=== PATIENT | female | born 1975 | race American Indian/Alaskan Native ===

== ENCOUNTER 2018-12-24 22:49 | Emergency (ER) | payer OTHER ==
[2018-12-25] MEDS ORDERED: CLEOCIN 900 MG/50 mL 900 MG/50 ML BAG IV ONE (03:32)
[2018-12-25] MEDS ORDERED: TORADOL IV ONE (03:32)
[2018-12-25] MEDS ORDERED: NACL 0.9% 1000 ML 1,000 ML IV ONE (03:32)
--- NOTE | 2018-12-25 04:20 | Emergency Department Report ---
ED ENT HPI - General Chief complaint: Headache Stated complaint: FACE SWELLING LEFT SIDE HEADACHE Time Seen by Provider: 12/25/18 03:28 Source: patient Mode of arrival: Ambulatory Limitations: No Limitations - History of Present Illness Initial comments: Patient is a 43-year-old -Thai female who presents for recurrent dental abscess #15 with facial and gum swelling patient states some mild ear pain there is no tinnitus is no sore throat no fever or chills patient is tolerating by mouth intake There is no neck swelling no neck masses there are no visual changes no eye drainage no blurred vision MD complaint: tooth pain Onset/Timin -: week(s), unknown (recurring chronic dental carries with abscess ) Location: tooth # (15) Severity: moderate Severity scale (0 -10): 5 Quality: aching Consistency: constant Improves with: none Worsens with: eating Context- Dental: history of dental caries, poor dental care Associated Symptoms: gum swelling, toothache - Related Data Previous Rx's Medication Instructions Recorded Last Taken Type Clindamycin [Clindamycin CAP] 300 mg PO Q6H 10 Days #40 capsule 12/25/18 Unknown Rx Ibuprofen 800 mg PO TID PRN #30 tablet 12/25/18 Unknown Rx Allergies Allergy/AdvReac Type Severity Reaction Status Date / Time droperidol [From Inapsine] Allergy Dizziness Verified 12/24/18 23:08 prochlorperazine Allergy Swelling Verified 12/24/18 23:08 [From Compazine] ED Dental HPI - General Chief complaint: Headache Stated complaint: FACE SWELLING LEFT SIDE HEADACHE Time Seen by Provider: 12/25/18 03:28 Source: patient Mode of arrival: Ambulatory Limitations: No Limitations - Related Data Previous Rx's Medication Instructions Recorded Last Taken Type Clindamycin [Clindamycin CAP] 300 mg PO Q6H 10 Days #40 capsule 12/25/18 Unknown Rx Ibuprofen 800 mg PO TID PRN #30 tablet 12/25/18 Unknown Rx Allergies Allergy/AdvReac Type Severity Reaction Status Date / Time droperidol [From Inapsine] Allergy Dizziness Verified 12/24/18 23:08 prochlorperazine Allergy Swelling Verified 12/24/18 23:08 [From Compazine] ED Review of Systems ROS: Stated complaint: FACE SWELLING LEFT SIDE HEADACHE Other details as noted in HPI Constitutional: denies: chills, fever Eyes: denies: eye pain, eye discharge, vision change ENT: dental pain. denies: ear pain, throat pain Respiratory: denies: cough, shortness of breath, wheezing Cardiovascular: denies: chest pain, palpitations Endocrine: no symptoms reported Gastrointestinal: denies: abdominal pain, nausea, diarrhea Genitourinary: denies: urgency, dysuria, discharge Musculoskeletal: denies: back pain, joint swelling, arthralgia Skin: denies: rash, lesions Neurological: as per HPI, headache. denies: abnormal gait, vertigo Psychiatric: denies: anxiety, depression Hematological/Lymphatic: denies: easy bleeding, easy bruising ED Past Medical Hx - Past Medical History Previous Medical History?: Yes Hx Sickle Cell Disease: Yes Hx Headaches / Migraines: Yes Additional medical history: Cervical DJD, - Surgical History Past Surgical History?: Yes Additional Surgical History: , Left breast, - Social History Smoking Status: Never Smoker Substance Use Type: Marijuana - Medications Home Medications: Home Medications Medication Instructions Recorded Confirmed Last Taken Type Clindamycin [Clindamycin CAP] 300 mg PO Q6H 10 Days #40 capsule 12/25/18 Unknown Rx Ibuprofen 800 mg PO TID PRN #30 tablet 12/25/18 Unknown Rx ED Physical Exam - General Limitations: No Limitations General appearance: alert, in no apparent distress - Head Head exam: Present: normocephalic - Expanded Head Exam Expanded Head exam: Present: other (left check and inferior periorbital swelling no erthema mild pain to cheek palpation). Absent: laceration, abrasion, contusion, hematoma, racoon eyes, mueller's sign, general tenderness, tenderness of temporal artery - Eye Eye exam: Present: normal appearance, PERRL, EOMI, periorbital swelling. Absent: conjunctival injection, periorbital tenderness Pupils: Present: normal accommodation. Absent: miosis - Expanded Eye Exam Expanded Eyelids: Normal Inspection: Right, Swelling: Left (left cheek and inferior periorbital swelling ) Pupils: Regular, Round: Bilateral, Reactive: Bilateral Sclera/Conjunctival: Normal Inspection: Bilateral Anterior chamber: Normal Inspection: Bilateral Posterior chamber: Deferred: Bilateral Visual acuity (R) = 20/: 40 Visual acuity (L) = 20/: 40 With correction: No - ENT ENT exam: Present: mucous membranes moist, TM's normal bilaterally, normal external ear exam - Expanded ENT Exam Expanded Ear exam: Present: normal external inspection Mouth exam: Absent: trismus Teeth exam: Present: dental caries, dental tenderness # (15 erythem swelling facial swelling no focal absces ) Throat exam: Positive: tonsillar erythema, other (uvula midline no swelling no stridor no peritonsilar abscess). Negative: tonsillomegaly, tonsillar exudate, R peritonsillar mass, L peritonsillar mass - Neck Neck exam: Present: normal inspection, full ROM, lymphadenopathy. Absent: tenderness, meningismus, thyromegaly - Expanded Neck Exam Expanded Neck exam: Absent: tenderness, midline deformity, anterior neck swelling, thyroid mass, carotid bruit, tracheal deviation - Respiratory Respiratory exam: Present: normal lung sounds bilaterally. Absent: respiratory distress, wheezes, rales, stridor, chest wall tenderness - Cardiovascular Cardiovascular Exam: Present: regular rate, normal rhythm, normal heart sounds. Absent: systolic murmur, diastolic murmur, rubs, gallop - GI/Abdominal GI/Abdominal exam: Present: soft, normal bowel sounds. Absent: tenderness, bruit, hernia - Rectal Rectal exam: Present: deferred - Extremities Exam Extremities exam: Present: normal inspection, full ROM - Back Exam Back exam: Present: normal inspection, full ROM. Absent: tenderness, rash noted - Neurological Exam Neurological exam: Present: alert, oriented X3, CN II-XII intact, normal gait - Psychiatric Psychiatric exam: Present: normal affect, normal mood - Skin Skin exam: Present: warm, dry, intact, normal color. Absent: rash ED Course Vital Signs 12/24/18 12/25/18 23:00 06:14 Temperature 97.9 F 98.3 F Pulse Rate 73 76 Respiratory 16 19 Rate Blood Pressure 102/75 Blood Pressure 118/68 [Left] O2 Sat by Pulse 99 99 Oximetry ED Medical Decision Making - Lab Data Result diagrams: 12/25/18 03:59 12/25/18 03:59 - Radiology Data Radiology results: report reviewed, image reviewed Findings [facility] [address] [place] [address] Cat Scan Report Signed Patient: HEENA NUNEZ MR#: [id number] : 1975 Acct:[id number] Age/Sex: 43 / F ADM Date: 12/24/18 Loc: ED Attending Dr: Ordering Physician: JOEY CHUN NP Date of Service: 12/25/18 Procedure(s): CT facial bones w con Accession Number(s): [id number] cc: JOEY CHUN NP PROCEDURE: CT FACIAL BONES W CON TECHNIQUE: Computerized tomography of the facial bones and soft tissues with axial and coronal sections was performed from the cranial aspect of the frontal sinuses to the caudal portion of the mandible following the IV injection of iodinated nonionic contrast. Automated exposure control, adjustment of mA and/or kV according to patient size, or iterative reconstruction dose optimization techniques were utilized. CT DOSE LENGTH PRODUCT: 589.3 mGycm HISTORY: dental abscess COMPARISONS: None . FINDINGS: There is left periorbital and facial soft tissues swelling consistent with cellulitis. There is no discrete abscess. There is no subcutaneous air or foreign body. Bones: No significant abnormality . Paranasal sinuses: There is mucosal thickening in the left maxillary sinus. There are no air-fluid levels. . IMPRESSION: There is left periorbital and facial soft tissues swelling consistent with cellulitis. There is no discrete abscess. There is no subcutaneous air or foreign body. . This document is electronically signed by Sofi Patel MD., December 25 2018 05:55:06 AM ET Transcribed By: CO Dictated By: SOFI PATEL MD Electronically Authenticated By: SOFI PATEL MD Signed Date/Time: 12/25/18 0556 DD/ 0332 TD/TT: 12/25/18 0516 - Medical Decision Making CT scan demonstrates facial swelling and inferior periorbital swelling no focal abscess, there is no Eye entrapment no eye pain eye vital signs, PERRLA EOMI, Conjunctivae pink normal no drainage no exudate, visual acuity 20/40 bilat, Discuss with patient concern for possibel periorbital cellulitis, pt offered admission and or transfer pt refused same, given exam , labs, CT study, response to iv dose of clindamycin, out patient therapy is reasonable in this case, Plan: Clindamycin 300 mg po qid , Ibuprofen prn pain , follow up with pcp in 2 days for follow up given referral to [facility], pt given strict instuctions to return to ed should symptoms worsen, at presents there is no fever no chills pt is tolerating po intake without pain, pt is a/o x 3 ambulatory wthi steady gait, will sign out AMA at this time with rx for Clinda mycin , and ibuprofen, pt verbalized agreement and understanding of treatment plan. , Pt has been given the opportunity to ask and I have answered all questions to her statisfaction, pt is a/o x 3 demonstrates decision making capacity and is signing out AMA at this time. Critical care attestation.: If time is entered above; I have spent that time in minutes in the direct care of this critically ill patient, excluding procedure time. ED Disposition Clinical Impression: Facial cellulitis, Periorbital cellulitis of left eye Disposition: LEFT AGAINST MED ADVICE Is pt being admited?: No Does the pt Need Aspirin: No Condition: Undetermined Instructions: Cellulitis (ED) Prescriptions: Clindamycin [Clindamycin CAP] 300 mg PO Q6H 10 Days #40 capsule Ibuprofen 800 mg PO TID PRN #30 tablet PRN Reason: pain Referrals: [facility] [Outside] - 3-5 Days Forms: AMA Form Time of Disposition: 06:59
[2018-12-25 04:30] LABS: Basophils # (Auto) 0.1 K/mm3 (0.0-0.1); Basophils % (Auto) 0.4 % (0.0-1.8); Eosinophils # (Auto) 0.1 K/mm3 (0.0-0.4); Eosinophils % (Auto) 0.9 % (0.0-4.3); Hematocrit 36.6 % (30.3-42.9); Hemoglobin 12.4 gm/dl (10.1-14.3); Lymphocytes # (Auto) 3.4 K/mm3 (1.2-5.4); Lymphocytes % (Auto) 24.3 % (13.4-35.0); Mean Corpuscular HGB Conc 34 % (30-34); Mean Corpuscular Volume 89 fl (79-97); Monocytes # (Auto) 1.5 K/mm3 (0.0-0.8); Monocytes % (Auto) 11.1 % (0.0-7.3); Platelet Count 217 K/mm3 (140-440); Red Blood Count 4.12 M/mm3 (3.65-5.03); Red Cell Distribution Width 13.8 % (13.2-15.2)
[2018-12-25 04:56] LABS: BUN/Creatinine Ratio 11; Blood Urea Nitrogen 9 mg/dL (7-17); Calcium 8.9 mg/dL (8.4-10.2); Hemolysis Index 8
--- NOTE | 2018-12-25 05:56 | Cat Scan Report ---
PROCEDURE: CT FACIAL BONES W CON TECHNIQUE: Computerized tomography of the facial bones and soft tissues with axial and coronal secti ons was performed from the cranial aspect of the frontal sinuses to the caudal portion of the mandibl e following the IV injection of iodinated nonionic contrast. Automated exposure control, adjustment o f mA and/or kV according to patient size, or iterative reconstruction dose optimization techniques we re utilized. CT DOSE LENGTH PRODUCT: 589.3 mGycm HISTORY: dental abscess COMPARISONS: None . FINDINGS: There is left periorbital and facial soft tissues swelling consistent with cellulitis. There is no di screte abscess. There is no subcutaneous air or foreign body. Bones: No significant abnormality . Paranasal sinuses: There is mucosal thickening in the left maxillary sinus. There are no air-fluid le vels. . IMPRESSION: There is left periorbital and facial soft tissues swelling consistent with cellulitis. T here is no discrete abscess. There is no subcutaneous air or foreign body. . This document is electronically signed by Joaquin Connolly MD., December 25 2018 05:55:06 AM ET
[2018-12-25 06:14] VITALS: BP 118/68
== END 2018-12-25 07:04 | disposition left against medical advice (07) ==
LOC: ED 22:49
DX: L03.211 Cellulitis of face (principal); L03.213 Periorbital cellulitis; G43.909 Migraine, unspecified, not intractable, without status migrainosus; F12.10 Cannabis abuse, uncomplicated; D57.1 Sickle-cell disease without crisis; Z88.4 Allergy status to anesthetic agent; Z88.8 Allergy status to other drugs, medicaments and biological substances
CPT/HCPCS: 36415; 70487; 80048; 84703; 85025; 96365; 96375; 99284; J1885; J7030

== ENCOUNTER 2021-11-20 14:21 | Emergency (ER) | payer SELFPAY ==
[2021-11-20] MEDS ORDERED: AZITHROMYCIN 250 MG TAB PO ONE (19:46)
[2021-11-20] MEDS ORDERED: DEXAMETHASONE 4 MG TAB PO ONE (19:47)
[2021-11-20] MEDS ORDERED: LIDOCAINE-MPF (1%) 10 MG/1 ML VIAL 5 ML INFILTRATI ONE (19:47)
[2021-11-20 20:24] LABS: Bilirubin,Urine NEG (Negative); Blood,Urine SM (Negative); Color,Urine Yellow (Yellow); HCG Qualitative,Urine Negative (Negative); Protein,Urine <15 mg/dL mg/dL (Negative)
[2021-11-20 20:25] LABS: Mucus,Urine 2+ /HPF
--- NOTE | 2021-11-20 20:35 | Emergency Department Report ---
- General Chief Complaint: Chest Pain Stated Complaint: CHEST PAIN/SINUS Time Seen by Provider: 11/20/21 19:40 Source: patient Mode of arrival: Ambulatory Limitations: No Limitations - History of Present Illness Initial Comments: 46-year-old black female with a past medical history of sickle cell anemia presents to the emergency department for evaluation of few day history of left- sided facial pain. She states that she has been taking yfuu-onh-hjagpyv sinus medication but her drainage from the left side of her nose is thick and green. She states that she has had a low-grade fever for the past 2 days also. She denies nausea vomiting. Patient also is requesting testing for STDs. She states that she recently found out that her partner has been cheating with someone who tested positive for chlamydia. She states that she has had vaginal odor with minimal vaginal discharge. She denies abdominal pain, dysuria, and vomiting. MD Complaint: fever, cough, sore throat, rhinorrhea, nasal congestion, sinus pain -: Gradual, days(s) Severity: severe (To) Severity scale (0 -10): 9 Quality: aching Consistency: constant Associated Symptoms: fever, headache, rhinorrhea, nasal congestion, sore throat, cough. denies: chills, stiff neck, chest pain, shortness of breath, abdominal pain, nausea, vomiting, diarrhea, dysuria, rash, confusion, hoarseness Treatments Prior to Arrival: none - Related Data Previous Rx's Medication Instructions Recorded Last Taken Type Clindamycin [Clindamycin CAP] 300 mg PO Q6H 10 Days #40 capsule 12/25/18 Unknown Rx Ibuprofen [Ibuprofen 800] 800 mg PO TID PRN #30 tablet 12/25/18 Unknown Rx Amoxicillin/Potassium Clav 1 each PO BID #14 tab 11/20/21 Unknown Rx [Augmentin 875-125 Tablet] methylPREDNISolone [Medrol 4MG 4 mg PO DAILY #1 pack 11/20/21 Unknown Rx DOSEPAK (21 tabs)] Allergies Allergy/AdvReac Type Severity Reaction Status Date / Time droperidol [From Inapsine] Allergy Dizziness Verified 12/24/18 23:08 prochlorperazine Allergy Swelling Verified 12/24/18 23:08 [From Compazine] ED Review of Systems ROS: Stated complaint: CHEST PAIN/SINUS Other details as noted in HPI Comment: All other systems reviewed and negative Constitutional: denies: chills, fever Eyes: denies: eye pain, eye discharge ENT: throat pain. denies: ear pain, congestion Respiratory: denies: cough, shortness of breath, SOB with exertion, SOB at rest Cardiovascular: denies: chest pain, palpitations, dyspnea on exertion, orthopnea, edema, syncope, paroxysmal nocturnal dyspnea Endocrine: no symptoms reported Gastrointestinal: denies: abdominal pain, nausea, vomiting, diarrhea, hematemesis, melena, hematochezia Genitourinary: discharge. denies: urgency, dysuria, frequency, hematuria Musculoskeletal: denies: back pain Skin: denies: rash, lesions Neurological: denies: headache, weakness Psychiatric: denies: anxiety, depression Hematological/Lymphatic: denies: easy bleeding, easy bruising ED Past Medical Hx - Past Medical History Hx Sickle Cell Disease: Yes Hx Headaches / Migraines: Yes Additional medical history: Cervical DJD, - Surgical History Additional Surgical History: , Left breast, - Social History Smoking Status: Never Smoker Substance Use Type: Marijuana - Medications Home Medications: Home Medications Medication Instructions Recorded Confirmed Last Taken Type Clindamycin [Clindamycin CAP] 300 mg PO Q6H 10 Days #40 capsule 12/25/18 Unknown Rx Ibuprofen [Ibuprofen 800] 800 mg PO TID PRN #30 tablet 12/25/18 Unknown Rx Amoxicillin/Potassium Clav 1 each PO BID #14 tab 11/20/21 Unknown Rx [Augmentin 875-125 Tablet] methylPREDNISolone [Medrol 4MG 4 mg PO DAILY #1 pack 11/20/21 Unknown Rx DOSEPAK (21 tabs)] ED Physical Exam - General Limitations: No Limitations General appearance: alert, in no apparent distress - Head Head exam: Present: atraumatic, normocephalic - ENT ENT exam: Present: normal orophraynx (Erythema to posterior oropharynx). Absent: normal exam (Left nasal mucosal edema and turbinate swelling with moderate amount of greenish purulent drainage noted) - Expanded ENT Exam Expanded Throat exam: Positive: tonsillar erythema. Negative: tonsillomegaly, tonsillar exudate, R peritonsillar mass, L peritonsillar mass - Neck Neck exam: Present: normal inspection. Absent: lymphadenopathy - Respiratory Respiratory exam: Present: normal lung sounds bilaterally. Absent: respiratory distress, wheezes, rales, rhonchi, chest wall tenderness, accessory muscle use - Cardiovascular Cardiovascular Exam: Present: regular rate, normal heart sounds - GI/Abdominal GI/Abdominal exam: Present: soft, normal bowel sounds. Absent: distended, tenderness, guarding, rebound, rigid - External exam: Present: other (Patient self swab) - Extremities Exam Extremities exam: Present: normal inspection - Back Exam Back exam: Present: normal inspection. Absent: CVA tenderness (R), CVA tenderness (L) - Neurological Exam Neurological exam: Present: alert, oriented X3 - Psychiatric Psychiatric exam: Present: normal affect, normal mood - Skin Skin exam: Present: warm, dry, intact, normal color ED Course Vital Signs 11/20/21 11/20/21 15:04 21:27 Temperature 99.2 F 99.3 F Pulse Rate 94 H 88 Respiratory 16 18 Rate Blood Pressure 126/82 114/77 [Left] O2 Sat by Pulse 100 98 Oximetry ED Medical Decision Making - Medical Decision Making 46-year-old black female with a past medical history of sickle cell anemia presents to the emergency department for evaluation of few day history of left- sided facial pain. She states that she has been taking qfmy-rjf-cafgpgl sinus medication but her drainage from the left side of her nose is thick and green. She states that she has had a low-grade fever for the past 2 days also. She denies nausea vomiting. Patient also is requesting testing for STDs. She states that she recently found out that her partner has been cheating with someone who tested positive for chlamydia. She states that she has had vaginal odor with minimal vaginal discharge. She denies abdominal pain, dysuria, and vomiting. Exam consistent with acute bacterial rhinosinusitis, and patient will be treated with 7-day course of Augmentin along with steroid taper. Patient self swabbed for wet prep and GC chlamydia. Wet prep negative for BV, trichomonas, yeast. Patient will be prophylactically treated for gonorrhea and chlamydia with 1 g of azithromycin and Rocephin 500 mg IM. She was advised that she will be notified if her this is a case come back positive so that she can notify her partner so that he can be treated also. She was advised to take medications as prescribed. Drink plenty of noncaffeinated fluids and follow-up with primary care provider if no improvement or worsening symptoms. She verbalized understanding of and agreement with plan of care. Critical care attestation.: If time is entered above; I have spent that time in minutes in the direct care of this critically ill patient, excluding procedure time. ED Disposition Clinical Impression: Acute bacterial rhinosinusitis, Vaginal discharge, Possible exposure to STD Disposition: 01 HOME / SELF CARE / HOMELESS Is pt being admited?: No Does the pt Need Aspirin: No Condition: Stable Instructions: Antibiotic Medicine, Adult, [id number], Sinusitis, Adult, [id number], How to Perform a Sinus Rinse, [id number], Safe Sex Additional Instructions: Take medications as prescribed. Follow-up with primary care provider for further evaluation and management. Return to the emergency department for any concerning symptoms. Prescriptions: Amoxicillin/Potassium Clav [Augmentin 875-125 Tablet] 1 each PO BID #14 tab methylPREDNISolone [Medrol 4MG DOSEPAK (21 tabs)] 4 mg PO DAILY #1 pack Referrals: CARLOS GREENE MD [Staff Physician] - 3-5 Days DIGNA EASLEY MD [Referring] - 3-5 Days Forms: Work/School Release Form(ED) Time of Disposition: 20:35 ED Female HPI - General Chief complaint: Chest Pain Stated complaint: CHEST PAIN/SINUS Time Seen by Provider: 11/20/21 19:40 Source: patient Mode of arrival: Ambulatory Limitations: No Limitations - History of Present Illness Complaint: vaginal discharge, possible STD -: Gradual Are you Now?: No Last Menstrual Period: 10/30/21 EDC: 08/06/22 Associated Symptoms: vaginal discharge, fever/chills. denies: vaginal bleeding, abdominal pain, nausea/vomiting, headaches, loss of appetite, dysuria, rash, seizure, shortness of breath, syncope, weakness - Related Data Sexually active: Yes Previous Rx's Medication Instructions Recorded Last Taken Type Clindamycin [Clindamycin CAP] 300 mg PO Q6H 10 Days #40 capsule 12/25/18 Unknown Rx Ibuprofen [Ibuprofen 800] 800 mg PO TID PRN #30 tablet 12/25/18 Unknown Rx Amoxicillin/Potassium Clav 1 each PO BID #14 tab 11/20/21 Unknown Rx [Augmentin 875-125 Tablet] methylPREDNISolone [Medrol 4MG 4 mg PO DAILY #1 pack 11/20/21 Unknown Rx DOSEPAK (21 tabs)] Allergies Allergy/AdvReac Type Severity Reaction Status Date / Time droperidol [From Inapsine] Allergy Dizziness Verified 12/24/18 23:08 prochlorperazine Allergy Swelling Verified 12/24/18 23:08 [From Compazine]
[2021-11-20 21:37] VITALS: BP 114/77
== END 2021-11-20 21:26 | disposition home or self-care (01) ==
LOC: ED 14:21
DX: J01.80 Other acute sinusitis (principal); B96.89 Other specified bacterial agents as the cause of diseases classified elsewhere; Z20.2 Contact with and (suspected) exposure to infections with a predominantly sexual mode of transmission; D57.00 Hb-SS disease with crisis, unspecified; G43.909 Migraine, unspecified, not intractable, without status migrainosus; Z98.890 Other specified postprocedural states; Z91.09 Other allergy status, other than to drugs and biological substances
CPT/HCPCS: 81001; 81025; 87210; 87591; 93005; 96372; 99283; J0696; J8540